=== PATIENT | male | born 1950 | race Caucasian/White ===

== ENCOUNTER 2017-09-20 09:31 | Day surgery (SDC) | payer MEDICARE, SELFPAY ==
[2017-09-13 11:06] VITALS: BP 141/80; PULSE 69; RESP 16; TEMP 37.1; O2SAT 98; BMI 29.7
--- NOTE | 2017-09-13 11:31 | SDCEKG_ITS ---
Test Reason : Blood Pressure : / mmHG Vent. Rate : 068 BPM Atrial Rate : 068 BPM P-R Int : 158 ms QRS Dur : 088 ms QT Int : 408 ms P-R-T Axes : -12 -11 036 degrees QTc Int : 433 ms Normal sinus rhythm Normal ECG Confirmed by MAHOGANY PALACIOS ([id number]), proposal editor VIDYA CHOUDHARY ([id number]) on 09/17/2017 1:15:32 PM Referred By: Jam Castellon Confirmed By:MAHOGANY PALACIOS
[2017-09-13 11:57] LABS: Hematocrit 43.5 % (40-54); Hemoglobin 14.9 g/dl (13.0-16.5); Mean Corp Hgb Conc 34.3 g/gl (32-36); Mean Corpuscular Hgb 30.8 pg (27.0-32.0); Mean Corpuscular Volume 90.1 fL (80-94); Mean Platelet Vol. 9.6 fl (6.2-12.0); Platelet Count 203 K/mm3 (150-450); RBC Distribution Width CV 12.9 % (11.6-14.6); RBC Distribution Width SD 41.7 fl (35.1-43.9); Red Blood Count 4.83 M/mm3 (4.6-6.2); White Blood Count 6.3 K/mm3 (4.4-11.0)
[2017-09-13 12:04] LABS: Scan Indicated on CBC? Y/N NO
[2017-09-13 12:07] LABS: International Normalized Ratio 1.1; Partial Thromboplast Time 30.3 Seconds (24.1-36.2); Prothrombin Time (Protime)PT. 13.6 SECONDS (11.7-14.9)
[2017-09-13 12:49] LABS: AST(SGOT) 22 U/L (15-37); Alanine Aminotransfer ALT/SGPT 34 U/L (16-61); Albumin, Serum 3.6 g/dL (3.2-5.0); Alkaline Phosphatase 96 U/L (45-117); Bilirubin, Direct 0.13 mg/dL (0.00-0.30); Globulin 3.6 g/dL (2.2-4.2); Protein, Total 7.2 g/dL (6.4-8.2)
[2017-09-20 09:50] VITALS: BP 137/80; PULSE 84; RESP 14; TEMP 36.9; O2SAT 98; BMI 29.7
[2017-09-20] MEDS: Lubricating Jelly 60 GM Tube 30 GM TOPICAL (10:56)
--- NOTE | 2017-09-20 11:16 | PCM.DC.URO ---
Discharge Diet: No Restrictions, Light diet - advance as tolerated Discharge Activity: May not drive while taking narcotic pain medications. May shower in (days): 1 Call your doctor if your incision/area has: Continuous Slow Oozing, Sudden Increased Bleeding, Increased Pain/ Swelling, Increased Redness, Foul Smelling Discharge, Swelling at the incision site Call your doctor if you observe: Fever of 101 or Higher Suture Line Care: Avoid Pulling/Pushing, Avoid Pinching/Bending Instructions: Treating Bladder Cancer: TUR (Transurethral Resection) Allergies/Adverse Reactions: Allergies clindamycin Allergy (Verified 09/13/17 10:59) Other DIZZY Medications to take at Discharge Calcium Citrate/Vitamin D3 [Citracal-Vit D3 200 mg-250 Tab] 1 each PO DAILY 09/13/17 Glucosam/Chond/Hyalu/Cf Borate [Move Free Joint Health Tablet] 1 each PO DAILY 09/13/17 Lisinopril [Prinivil] 10 mg PO DAILY 09/13/17 Multivit-Min/FA/Lycopen/Lutein [Centrum Silver Men Tablet] 1 each PO DAILY 09/13/17 Naproxen Sodium [Aleve] 440 mg PO Q12H PRN PRN 09/13/17 Triamcinolone 0.1% Cream [Kenalog] 1 applic TOPICAL BID 09/13/17 Ciprofloxacin [Cipro] 500 mg PO BID #10 tab 09/20/17 Ciprofloxacin [Cipro] 500 mg PO BID #10 tab 09/20/17 Ciprofloxacin [Cipro] 500 mg PO BID #14 tab 09/20/17 Hydrocodone/Acetaminophen [Laurens 5-325 Tablet] 1 ea PO Q4H PRN PRN #14 tab 09/20/17 Hydrocodone/Acetaminophen [Laurens 5-325 Tablet] 1 ea PO Q4H PRN PRN #14 tab 09/20/17 Hydrocodone/Acetaminophen [Laurens 5-325 Tablet] 1 ea PO Q4H PRN PRN 5 Days #14 tab 09/20/17 The following prescriptions were given: Hydrocodone/Acetaminophen [Laurens 5-325 Tablet] 1 ea PO Q4H PRN PRN 5 Days #14 tab PRN Reason: Pain Hydrocodone/Acetaminophen [Laurens 5-325 Tablet] 1 ea PO Q4H PRN PRN #14 tab PRN Reason: Pain Hydrocodone/Acetaminophen [Laurens 5-325 Tablet] 1 ea PO Q4H PRN PRN #14 tab PRN Reason: Pain Ciprofloxacin [Cipro] 500 mg PO BID #14 tab Ciprofloxacin [Cipro] 500 mg PO BID #10 tab Ciprofloxacin [Cipro] 500 mg PO BID #10 tab Primary Care Physician: Dorene Joshi [Primary Care Provider] - Please Follow Up With: Jam Castellon MD - call if need to change appt. When: SaturdayOctober 08 at 9:00am
--- NOTE | 2017-09-20 11:19 | DCINST_ITS ---
Discharge Diet: No Restrictions, Light diet - advance as tolerated Discharge Activity: May not drive while taking narcotic pain medications. May shower in (days): 1 Call your doctor if your incision/area has: Continuous Slow Oozing, Sudden Increased Bleeding, Increased Pain/ Swelling, Increased Redness, Foul Smelling Discharge, Swelling at the incision site Call your doctor if you observe: Fever of 101 or Higher Suture Line Care: Avoid Pulling/Pushing, Avoid Pinching/Bending Instructions: Treating Bladder Cancer: TUR (Transurethral Resection) Allergies/Adverse Reactions: Allergies clindamycin Allergy (Verified 09/13/17 10:59) Other DIZZY Medications to take at Discharge Calcium Citrate/Vitamin D3 [Citracal-Vit D3 200 mg-250 Tab] 1 each PO DAILY Glucosam/Chond/Hyalu/Cf Borate [Move Free Joint Health Tablet] 1 each PO DAILY 09/13/17 Lisinopril [Prinivil] 10 mg PO DAILY 09/13/17 Multivit-Min/FA/Lycopen/Lutein [Centrum Silver Men Tablet] 1 each PO DAILY 09/13 Naproxen Sodium [Aleve] 440 mg PO Q12H PRN PRN 09/13/17 Triamcinolone 0.1% Cream [Kenalog] 1 applic TOPICAL BID 09/13/17 Ciprofloxacin [Cipro] 500 mg PO BID #10 tab 09/20/17 Ciprofloxacin [Cipro] 500 mg PO BID #10 tab 09/20/17 Ciprofloxacin [Cipro] 500 mg PO BID #14 tab 09/20/17 Hydrocodone/Acetaminophen [[place] 5-325 Tablet] 1 ea PO Q4H PRN PRN #14 tab 09/20 Hydrocodone/Acetaminophen [[place] 5-325 Tablet] 1 ea PO Q4H PRN PRN #14 tab 09/20 Hydrocodone/Acetaminophen [[place] 5-325 Tablet] 1 ea PO Q4H PRN PRN 5 Days #14 tab 09/20/17 The following prescriptions were given: Hydrocodone/Acetaminophen [[place] 5-325 Tablet] 1 ea PO Q4H PRN PRN 5 Days #14 tab PRN Reason: Pain Hydrocodone/Acetaminophen [[place] 5-325 Tablet] 1 ea PO Q4H PRN PRN #14 tab PRN Reason: Pain Hydrocodone/Acetaminophen [[place] 5-325 Tablet] 1 ea PO Q4H PRN PRN #14 tab PRN Reason: Pain Ciprofloxacin [Cipro] 500 mg PO BID #14 tab Ciprofloxacin [Cipro] 500 mg PO BID #10 tab Ciprofloxacin [Cipro] 500 mg PO BID #10 tab Primary Care Physician: Dorene Joshi [Primary Care Provider] - Please Follow Up With: Jam Castellon MD - call if need to change appt. When: SaturdayOctober 08 at 9:00am
[2017-09-20] MEDS: Cefazolin 2 GM in 0.9% Normal Saline 100 ML IV (11:20)
--- NOTE | 2017-09-20 11:43 | PCM.OPRPT ---
Report of Operation Date of Procedure: 09/20/17 Pre-Operative Diagnosis: multiple bladder tumors involving the left side of the bladder Post-Operative Diagnosis: Same Surgery/Procedure Performed:: Transurethral resection of multiple bladder tumors about 3 cm in size Description of Surgical Findings:: 67-year-old male was taken back to the operating room after smooth induction of general anesthesia he was placed supine on the table and then in dorsal lithotomy position, the penis and testicles were prepped and draped in usual sterile fashion I went into the bladder with a 24 [place] noncontinuous flow resectoscope inspected the bladder and he had carpeted tumors from the left ureteral orifice all the way up on the left lateral wall the bladder about 3cm in size. I then resected these tumors with the resectoscope and then used the cautery to cauterize entire base until there was nice smooth and no tumors were seen I then inspected the bladder again with 30 and 70? lens and appear to be complete resection with no perforation of the bladder violation of the bladder. I then placed 40 cc of 40 mg of mitomycin-C into the bladder. The patient anesthetic was reversed and is taken back to the PACU in good condition. Type of Anesthesia:: General Drains: none - Admit VTE Documentation VTE Present on Admission: No VTE Mechan Device Prophylaxis: SCD's VTE Pharm Prophylaxis ordered?: No Reason prophylaxis not ordered:: Treatment Not Indicated
--- NOTE | 2017-09-20 11:45 | BLB_PTH ---
PATIENT: GUDELIA RASMUSSEN LOC: [facility] [place] U#:[id number] AGE/SX: 67/M ROOM: RE09/20/[address]: Dr. Jam Castellon MD : 1950 BED: DIS: 09/20/2017 SPEC #: [id number] RECD: 09/20/17 14:17 STATUS: BRENDA REFang #: [id number] HALLEY: 09/20/17 11:[address]: Jam Castellon DEPT: SURGICAL PATHOLOGY RECD BY: Stanislav Russell ENTERED: 09/20/17 14:27 SP TYPE: TURB OTHR DR: Dr. Dorene Joshi MD Tissues: Urinary bladder, NOS Procedures: Surgery Specimen Level V HEADER OPERATION: Cysto, TUR bladder, Olympus PRE-OP DIAGNOSIS: Bladder tumor; gross hematuria TISSUE SUBMITTED: Bladder tumor MICROSCOPIC DIAGNOSIS Bladder tumor, TUR: Papillary urothelial carcinoma. BLADDER CANCER (TUR) SUMMARY: Procedure - TURBT Histologic type ? urothelial (transitional cell) carcinoma Associated epithelial lesions ? none identified Histologic grade - urothelial carcinoma (WHO 2004/ISUP) ? low grade (1/3) Tumor configuration - papillary Adequacy of material for determining muscularis propria invasion - muscularis propria (detrusor muscle) is not identified. Lymph-Vascular invasion ? not identified Microscopic extent of tumor ? noninvasive papillary carcinoma Additional pathologic findings - none The above summary is in compliance with [employer] [place] (CAP) Cancer Protocols Checklist and [place] Joint Committee on Cancer (AJCC), Staging Manual, 8th Ed. EDUARDO:selam 09/23/17 MICROSCOPIC DESCRIPTION Slides are reviewed. GROSS DESCRIPTION Received in fixative is one container labeled with the patient's name and designated bladder tumor. The specimen consists of multiple irregular fragments of beckman soft tissue that in aggregate measure 3 x 2.5 x 0.3 cm. The specimen is totally submitted in one cassette. / EDUARDO:selam 09/20/17 TC:0 CPT: 63810
[2017-09-20 11:55] VITALS: BP 137/80; BP 156/94; PULSE 109; RESP 18; TEMP 36.4; O2SAT 96
[2017-09-20 12:00] VITALS: BP 117/87; BP 137/80; PULSE 99; RESP 16; O2SAT 96
[2017-09-20 12:15] VITALS: BP 135/78; BP 137/80; PULSE 84; RESP 16; TEMP 36.2; O2SAT 95
[2017-09-20 13:23] VITALS: BP 137/80
== END 2017-09-20 13:27 | disposition home or self-care (01) ==
LOC: SDC 09:32 → AC 09:33
PROVIDERS: Anesthesiology; Family Provider Internal Medicine; PCP Internal Medicine; Visit Provider Urology
PROC: 0TBB8ZZ Excision of Bladder, Via Natural or Artificial Opening Endoscopic (ICD-10-PCS; CPT 52235; principal; 2017-09-20 11:35)
DX: C67.6 Malignant neoplasm of ureteric orifice (principal); C67.2 Malignant neoplasm of lateral wall of bladder; Z85.828 Personal history of other malignant neoplasm of skin; Z79.899 Other long term (current) drug therapy; I10 Essential (primary) hypertension; Z87.891 Personal history of nicotine dependence; R31.0 Gross hematuria
CPT/HCPCS: 52235; 80076; 85027; 85610; 85730; 88307; J3010; J7120; J2405; J3490; J9280

== ENCOUNTER → 2019-12-22 | Outpatient (CLI) | payer MEDICARE, SELFPAY ==
--- NOTE | 2019-12-22 | CYSPIN_PTH ---
PATIENT: GUDELIA JOSHUA LOC: [facility] U#:[id number] AGE/SX: 69/M ROOM: RE12/22/[address]: Dr. Jam Castellon MD : 1950 BED: DIS: 12/22/2019 SPEC #: [id number] RECD: 12/22/19 12:01 STATUS: BRENDA JORGE #: [id number] HALLEY: 12/22/19 00:[address]: Jam Castellon DEPT: CYTOLOGY RECD BY: Malcolm Joshua ENTERED: 12/22/19 12:01 SP TYPE: CYSPIN FL OTHR DR: Dr. Dorene Joshi MD Tissues: Urine Procedures: Pap Stain (control) Special Stain Group II Cytospin Fluid HEADER OPERATION: Not noted PRE-OP DIAGNOSIS: Malignant neoplasm of lateral wall of bladder TISSUE SUBMITTED: Urine for cytology DIAGNOSIS CYTOLOGY Urine for cytology (cytospin): Atypical urothelial cells with degenerative change. AM:selam 12/23/19 CYTOLOGY STUDY Slides are reviewed. CYTOLOGY GROSS Received is 60 ml of cloudy orange fluid labeled with the patient's name and and designated per the requisition as urine. Submitted for cytology preparation. / selam 12/22/19 TC:? CPT: 56640
[2019-12-22 11:06] LABS: Cytology, Body Fluid / CSF SEE PATHOLOGY REPORT
== END | disposition home or self-care (01) ==
PROVIDERS: PCP Internal Medicine; Visit Provider Urology
DX: C67.2 Malignant neoplasm of lateral wall of bladder (principal)
CPT/HCPCS: 88108; 88313

== ENCOUNTER → 2020-06-27 | Outpatient (CLI) | payer MEDICARE, SELFPAY ==
--- NOTE | 2020-06-27 08:50 | CYSPIN_PTH ---
PATIENT: GUDELIA RASMUSSEN LOC: [facility] U#:[id number] AGE/SX: 70/M ROOM: RE06/27/[address]: Dr. Jam Castellon MD : 1950 BED: DIS: 06/27/2020 SPEC #: [id number] RECD: 06/28/20 08:21 STATUS: BRENDA JORGE #: [id number] HALLEY: 06/27/20 08:[address]: Jam Castellon DEPT: CYTOLOGY RECD BY: Vandana Damon ENTERED: 06/28/20 08:22 SP TYPE: CYSPIN FL OTHR DR: Dr. Dorene Joshi MD Tissues: Urine Procedures: Pap Stain (control) Special Stain Group II Cytospin Fluid HEADER OPERATION: Not noted PRE-OP DIAGNOSIS: Malignant neoplasm of bladder TISSUE SUBMITTED: Urine for cytology DIAGNOSIS CYTOLOGY Urine for cytology (cytospin): Rare atypical degenerating cells, favor reactive. AM:selam 06/29/20 CYTOLOGY STUDY Slides are reviewed. CYTOLOGY GROSS Received is 50 ml of dark orange-yellow, cloudy fluid labeled with the patient's name and and designated per the requisition as urine. Submitted for cytology preparation. / selam 06/28/20 TC:? CPT: 76533
[2020-06-27 17:24] LABS: Cytology, Body Fluid / CSF SEE PATHOLOGY REPORT
== END | disposition home or self-care (01) ==
LOC: LABSPEC 17:08
PROVIDERS: PCP Internal Medicine; Referring Provider Urology; Visit Provider Urology
DX: C67.2 Malignant neoplasm of lateral wall of bladder (principal)
CPT/HCPCS: 88108; 88313

== ENCOUNTER → 2020-12-27 10:12 | Outpatient (CLI) | payer MEDICARE, SELFPAY ==
--- NOTE | 2020-12-27 10:18 | EKG12_ITS ---
Test Reason : PER-OP Blood Pressure : / mmHG Vent. Rate : 078 BPM Atrial Rate : 078 BPM P-R Int : 148 ms QRS Dur : 086 ms QT Int : 406 ms P-R-T Axes : 000 005 041 degrees QTc Int : 462 ms Normal sinus rhythm Normal ECG Confirmed by ALBERT GRADY, GIUSEPPE ([id number]), legal editor SURESH DONIS ([id number]) on 12/28/2020 9:14:24 AM Referred By: Jam Castellon Confirmed By:GIUSEPPE PRICE MD
[2020-12-27 10:53] LABS: Hematocrit 41.5 % (40-54); Hemoglobin 14.2 g/dL (13.0-16.5); Mean Corp Hgb Conc 34.2 g/dL (32-36); Mean Corpuscular Hgb 31.3 pg (27.0-32.0); Mean Corpuscular Volume 91.4 fL (80-94); Mean Platelet Vol. 9.3 fl (6.2-12.0); Platelet Count 188 K/mm3 (150-450); RBC Distribution Width CV 12.4 % (11.6-14.6); Red Blood Count 4.54 M/mm3 (4.6-6.2); White Blood Count 5.5 K/mm3 (4.4-11.0)
[2020-12-27 11:08] LABS: Anion Gap 5 (5-15); BUN 14 mg/dL (7-18); BUN/Creat Ratio 20.9 RATIO (10-20); Chloride 106 mmol/L (98-107); Creatinine, Serum 0.67 mg/dL (0.70-1.30); EST Glomerular Filtration Rate 124 mL/min (>60); Est Glom Filt Rate - Afr Amer 150 mL/min (>60); Glucose 97 mg/dL (74-106); Potassium 4.1 mmol/L (3.5-5.1); Sodium Level 139 mmol/L (136-145)
== END ==
PROVIDERS: PCP Internal Medicine; Referring Provider Urology; Visit Provider Urology
DX: Z01.812 Encounter for preprocedural laboratory examination (principal); I10 Essential (primary) hypertension
CPT/HCPCS: 36415; 80048; 85027; 93005

== ENCOUNTER → 2021-01-06 15:17 | Outpatient (CLI) | payer MEDICARE, SELFPAY ==
--- NOTE | 2021-01-06 11:07 | BLA_PTH ---
PATIENT: GUDELIA RASMUSSEN LOC: [facility] U#:[id number] AGE/SX: 75/M ROOM: RE01/06/[address]: Dr. Jam Castellon MD : 1950 BED: DIS: SPEC #: [id number] RECD: 01/06/21 15:04 STATUS: BRENDA PATEL #: [id number] HALLEY: 01/06/21 11:[address]: Jam Castellon DEPT: SURGICAL PATHOLOGY RECD BY: Vandana Damon ENTERED: 01/09/21 08:33 SP TYPE: BLADDER BX OTHR DR: Dr. Dorene Joshi MD [facility] Tissues: Urinary bladder, NOS Procedures: Surgery Specimen Level V HEADER OPERATION: Transurethral resection of bladder tumor with Olympus PRE-OP DIAGNOSIS: Bladder neoplasm TISSUE SUBMITTED: Bladder tumor MICROSCOPIC DIAGNOSIS Bladder tumor, TUR: Papillary urothelial carcinoma. See cancer summary in the comment section. SJ:selam 01/10/2021 COMMENT BLADDER CANCER (TUR) SUMMARY Procedure: Transurethral resection of bladder (TURBT) Tumor site: Not specified Histologic type: Papillary urothelial carcinoma, noninvasive Associated epithelial lesions: None identified Histologic grade: Low grade (1/3) Tumor configuration: Papillary Muscularis propria presence: No muscularis propria (detrusor muscle) identified. Lymphvascular invasion: Not identified Tumor extension: Noninvasive papillary carcinoma Additional pathologic findings: None The above summary is in compliance with [employer] [place] [employer] (CAP) Cancer Protocols Checklist and [place] [employer] Committee on Cancer (AJCC), Staging Manual, 8th Ed. The specimen entirely consists of superficial fragment of tumor. Please make reference to previous specimens ([id number]), bladder tumor, TUR with diagnosis of papillary urothelial carcinoma and ([id number]) urine for cytology with diagnosis of atypical urothelial cells with degenerative changes and ([id number]) urine for cytology with diagnosis of rare atypical degenerating cells, favor reactive. Case has been reviewed in consultation with Dr. Aguilar who concurs with the above diagnosis. IDC:AM MICROSCOPIC DESCRIPTION Slides are reviewed. GROSS DESCRIPTION Received is one container labeled with the patient's name and not further designated. The specimen consists of one irregular fragment of light beckman soft tissue that measures 0.2 x 0.1 x 0.1 cm. The specimen is totally submitted in one cassette. / EDUARDO:selam 01/09/21 TC:0 CPT: 18391
== END ==
PROVIDERS: PCP Internal Medicine; Referring Provider Urology; Visit Provider Urology
DX: D49.4 Neoplasm of unspecified behavior of bladder (principal)
CPT/HCPCS: 88305; 88307

== ENCOUNTER → 2021-06-26 16:41 | Outpatient (CLI) | payer MEDICARE, SELFPAY ==
--- NOTE | 2021-06-26 | CYSPIN_PTH ---
PATIENT: GUDELIA JOSHUA LOC: [facility] U#:[id number] AGE/SX: 75/M ROOM: RE06/26/[address]: Dr. Jam Castellon MD : 1950 BED: DIS: SPEC #: [id number] RECD: 06/27/21 12:42 STATUS: BRENDA REFang #: [id number] HALLEY: 06/26/21 00:[address]: Jam Castellon DEPT: CYTOLOGY RECD BY: Malcolm Joshua ENTERED: 06/27/21 12:43 SP TYPE: CYSPIN FL OTHR DR: Dr. Dorene Joshi MD Tissues: Urine Procedures: Pap Stain (control) Special Stain Group II Cytospin Fluid HEADER OPERATION: Not noted PRE-OP DIAGNOSIS: Malignant neoplasm of bladder TISSUE SUBMITTED: Urine for cytology DIAGNOSIS CYTOLOGY Urine for cytology (cytospin): Atypical urothelial cells present. AM:selam 06/28/2021 COMMENT Reference is made to the patient's previous bladder tumor, TUR ([id number]) in which papillary urothelial carcinoma was identified. CYTOLOGY STUDY Slides are reviewed. CYTOLOGY GROSS Received is 60 ml of clear yellow fluid labeled with the patient's name and and designated per the requisition as urine. Submitted for cytology preparation. / selam 06/27/2021 TC:? CPT: 37717
[2021-06-26 16:57] LABS: Cytology, Body Fluid / CSF SEE PATHOLOGY REPORT
== END ==
PROVIDERS: PCP Internal Medicine; Visit Provider Urology
DX: C67.8 Malignant neoplasm of overlapping sites of bladder (principal)
CPT/HCPCS: 88108; 88313

== ENCOUNTER → 2021-12-07 | Outpatient (CLI) | payer MEDICARE, SELFPAY ==
--- NOTE | 2021-12-07 | BLA_PTH ---
PATIENT: GUDELIA RASMUSSEN LOC: [facility] U#:[id number] AGE/SX: 71/M ROOM: RE12/07/[address]: Dr. Jam Castellon MD : 1950 BED: DIS: 12/07/2021 SPEC #: [id number] RECD: 12/07/21 16:29 STATUS: BRENDA PATEL #: [id number] HALLEY: 12/07/21 00:[address]: Jam Castellon DEPT: SURGICAL PATHOLOGY RECD BY: Stanislav Russell ENTERED: 12/08/21 08:58 SP TYPE: BLADDER BX OTHR DR: Dr. Dorene Joshi MD Tissues: Urinary bladder, NOS Procedures: Surgery Specimen Level IV HEADER OPERATION: Bladder biopsy PRE-OP DIAGNOSIS: C67.8 TISSUE SUBMITTED: Bladder biopsy MICROSCOPIC DIAGNOSIS Urinary bladder, biopsy: Mild hyperplasia with minimal chronic inflammation. No evidence of malignancy. AM:selam 12/11/2021 COMMENT Reference is made to the patient's urinary bladder, TUR from 2018 ([id number]) in which low-grade urothelial carcinoma was identified. MICROSCOPIC DESCRIPTION Slides are reviewed. GROSS DESCRIPTION Received in fixative is one container labeled with the patient's name and designated bladder. The specimen consists of one irregular fragment of light beckman soft tissue that measures 0.2 x <0.1 x <0.1 cm. The specimen is totally submitted in one cassette. / SJ:selam 12/08/2021 TC:3 CPT: 86503
== END | disposition home or self-care (01) ==
LOC: LABSPEC 16:48
PROVIDERS: PCP Internal Medicine; Visit Provider Urology
DX: C67.8 Malignant neoplasm of overlapping sites of bladder (principal)
CPT/HCPCS: 88305